=== PATIENT | male | born 1985 | race Caucasian/White ===

== ENCOUNTER 2023-10-05 08:14 | Day surgery (SDC) | payer OTHER ==
[~2023-10-05] VITALS: Ht 172.7 cm; Wt 84.0 kg
[~2023-10-05 08:14] MED LIST: CETI-24 PO; PANT40TA29 PO; ZOLO25TA PO
[2023-10-05] MEDS: NS 1,000 ML IV ONE (09:15)
[2023-10-05] MEDS ORDERED: GLYCOPYRROLATE INJ 0.2 MG/ML 2 ML VIAL As Ordered ONE (09:29)
[2023-10-05] MEDS ORDERED: fentaNYL 100 MCG/2 ML INJECTION As Ordered ONE (09:29)
[2023-10-05] MEDS ORDERED: propofoL 200 MG/20 ML VIAL As Ordered ONE (09:30)
[2023-10-05 10:31] VITALS: BP 131/82; TEMP 97.7; O2SAT 99
== END 2023-10-05 10:34 | disposition home or self-care (01) ==
LOC: M OPP 08:14
PROVIDERS: ATTEND Internal Medicine Gastroenterology
DX: K22.89 Other specified disease of esophagus (principal); K20.0 Eosinophilic esophagitis; R12 Heartburn; R13.10 Dysphagia, unspecified; F17.290 Nicotine dependence, other tobacco product, uncomplicated; Z79.1 Long term (current) use of non-steroidal anti-inflammatories (NSAID); Z79.899 Other long term (current) drug therapy
CPT/HCPCS: 43239; 88305; J3010